=== PATIENT | male | born 1930 | race Caucasian/White ===

== ENCOUNTER 2020-11-30 11:04 | Inpatient (IN) | payer OTHER ==
[~2020-11-30] VITALS: Ht 172.7 cm; Wt 74.8 kg
[2020-11-30 11:09] VITALS: BP 117/55
[2020-11-30 12:16] LABS: ABSOLUTE NEUTROPHILS 5.5 thou/uL (1.4-8.2); BASOPHILS 0.6 % (0.0-2.0); HEMATOCRIT 44.7 % (42.0-52.0); HEMOGLOBIN 14.6 gm/dL (14.0-18.0); LYMPHOCYTES 17.6 % (24.0-44.0); MCHC 32.6 g/dL (28.0-37.0); MCV 82.7 fL (80.0-100.0); MONOCYTES 11.3 % (1.0-8.0); PLATELET COUNT 282 thou/uL (150-400); POLYS 66.5 % (36.0-66.0); RBC 5.41 mil/uL (4.50-6.00); RDW 14.7 % (10.5-14.5); WBC 8.3 thou/uL (4.0-11.0)
[2020-11-30 12:25] LABS: ANION GAP 11 mmol/L (7-16); BUN 16 mg/dL (7-18); CALCIUM 9.4 mg/dL (8.5-10.1); CHLORIDE 103 mmol/L (98-107); CO2 27 mmol/L (21-32); CREATININE 1.1 mg/dL (0.7-1.3); GLUCOSE 109 mg/dL (74-106); POTASSIUM 4.3 mmol/L (3.5-5.1); SODIUM 141 mmol/L (136-145)
--- NOTE | 2020-11-30 12:28 | NUR ---
PT BEGINNING TO BE AGRESSIVE WITH STAFF. THREATENING TO HIT THIS NURSE. STATES HES BEEN IN THE HOSPITAL FOR 2 DAYS AND WANTS TO GO HOME. PT IS NOT EASILY REDIRECTABLE.
[2020-11-30 12:35] LABS: ALBUMIN 3.4 g/dL (3.4-5.0); SGOT 12 U/L (15-37); SGPT 15 U/L (16-63); TOTAL BILIRUBIN 0.4 mg/dL (0.2-1.0); TOTAL PROTEIN 7.3 g/dL (6.4-8.2); TROPONIN-I <0.06 ng/mL (<0.06)
[2020-11-30 13:56] VITALS: BP 117/55
[2020-11-30 14:15] LABS: URINE BILIRUBIN NEGATIVE (Negative); URINE BLOOD 3+ (Negative); URINE CLARITY CLEAR; URINE COLOR YELLOW; URINE GLUCOSE-RANDOM* NEGATIVE (Negative); URINE KETONES NEGATIVE (Negative); URINE LEUKOCYTES-REFLEX TRACE (Negative); URINE NITRITE-REFLEX NEGATIVE (Negative); URINE PROTEIN (DIPSTICK) NEGATIVE (Negative); URINE SPECIFIC GRAVITY >= 1.030 (1.005-1.035)
[2020-11-30 14:24] VITALS: BP 134/68
[2020-11-30] MEDS ORDERED: PROSCAR 5MG TABL5 M1 PO (14:24)
[2020-11-30] MEDS ORDERED: SEROQUEL 25 MG25 MG PO (14:24)
[2020-11-30] MEDS ORDERED: CHILDREN'S ASPI81 M1 PO (14:24)
[2020-11-30 14:28] LABS: CASTS None Seen /LPF (None Seen); SQUAMOUS 0-3 Few /LPF (0-3)
[2020-11-30 14:29] LABS: URINE RBC >20 Many /HPF (0-2); URINE WBC-REFLEX 6-15 Few /HPF (0-5); YEAST-REFLEX Present (None Seen)
[2020-11-30 14:30] LABS: BACTERIA-REFLEX 1-9 Few /HPF (None Seen)
[2020-11-30 14:31] LABS: CRYSTALS None Seen /LPF (None Seen)
--- NOTE | 2020-11-30 15:39 | EKG ---
[address] [place] [address] ELECTROCARDIOGRAM REPORT Name: RAAD DUMONT Room #: 170-4 ADM IN M.R.#: [id number] Admission: 11/30/20 Attend Phys: Andreas Reyes MD Discharge: Date of : [birth year] Report #: [id number] [facility] ED Test Date: 2020-11-30 Test Time: 11:54:46 Pat Name: RAAD DUMONT Department: Room: 170 Gender: M [employer]: kf : [id number] Requested By: Hilario Paez Order Number: [id number] MD: Saúl Knowles Measurements Intervals [place] Rate: 93 P: 76 AK: 125 QRS: 69 QRSD: 77 T: 212 QT: 302 QTc: 376 Interpretive Statements Sinus rhythm Nonspecific T abnormalities, lateral leads No previous ECG available for comparison Electronically Signed On 11-30-2020 15:39:52 AUDIO VISUAL SECRETARY by Saúl Knowles [email or web address] <ELECTRONICALLY SIGNED> By: Saúl Knowles MD 11/30/20 1539 [id number] Saúl Knowles MD /CARLOS EDUARDO
--- NOTE | 2020-11-30 19:16 | NUR ---
Pt arrived to floor per cart at 1500 in stable condition.Admission history, assessment and care plan completed with pt assist via phone.Fall risk bracelet applied and pt transfered from 458 to [facility] for closer monitor.Report off to kathy rn.
[2020-11-30 20:00] VITALS: BP 135/73
--- NOTE | 2020-12-01 04:04 | NUR ---
Assumed pt care at 1900, awake,alert to self, very impulsive and keeps trying to get out of bed,pulling off tele electrodes several times. Pt making incomprehensible words as he moves from side to side in bed, denies pain on assessment. Medicated for insomnia with no effect,Charisma VULCAN CREWMEMBER notified on pt's status order given for Haldol IV and effective. Pt voiding per urinal per request. Won't leave gown/chux on. ST/ on telemetry. Fall precautions in place,resting quietly at this time w/o any distress noted,frequent checks on pt for safety done.
[2020-12-01 05:14] LABS: MCHC 33.1 g/dL (28.0-37.0)
[2020-12-01 05:17] LABS: HEMATOCRIT 44.1 % (42.0-52.0); HEMOGLOBIN 14.6 gm/dL (14.0-18.0); MCH 27.3 pg (26.0-34.0); MCV 82.5 fL (80.0-100.0); RBC 5.35 mil/uL (4.50-6.00); RDW 15.2 % (10.5-14.5); WBC 11.6 thou/uL (4.0-11.0)
[2020-12-01 08:00] VITALS: BP 118/69
--- NOTE | 2020-12-01 13:41 | NUR ---
FAXED CLINICAL UPDATE TO [facility] RECEIVED CONFIRMATION AND SPOKE WITH HEMAL IN ADM.
--- NOTE | 2020-12-01 14:37 | NUR ---
PT ADMITTED RELATED TO WEAKNESS, UNABLE TO TAKE CARE OF SELF. CM REVIEWED CHART AND SPOKE WITH CARE TEAM . CM ATTEMTPED PT TO PHONE NUMBER LISTED FOR SPOUSE WITH NO ANSWER. CM CALLED AND SPOKE WITH COLTEN DIRECTOR AT [facility]. IT WAS INDICATED THAT PT AND HIS STEPHANIE HAD MOVED IN THERE JUST BEFORE PENG. PT HAD RECENTLY BEEN TO [facility] SKILLED REHAB FACILITY AND HAD BEEN BACK AT THE [place] [facility] WITH FOR ABOUT A WEEK PRIOR TO COMING TO HOSPITAL. PT'S SPOUSE CALLED THE UNIT AND SHE INDICATED THAT HER CELL NUMBER IS . CM CALLED AND SPOKE WITH HER. SHE INDICATED THAT THEY BOTH HAD COVID BEFORE PENG AND THAT PT HADN'T REALLY RECOVERED. SHE AND PT HAD BEEN LIVING IN A HOUSE AT [address] [place] [address] IN [place] PRIOR TO MOVING INTO [facility]. THEY STILL OWN HOME AND SPOUSE INDICATED THAT IS IS MORE ACCESSABLE FOR PT THEN APPARTMENT. SHE INDICATED THAT PT HAD 3 HRS 4 DAYS A WEEK [facility] AT HOME AND HAD USED SPECIAL[facility]ED HH SERVICES IN THE PAST. SHE INDICATED PT IS NOW WC BOUND BUT THAT HE HAD BEEN ABLE TO DO TRANSFERES AT [facility] PRIOR TO THIS LAST SKILLED STAY. PT'S PCP IS DR. HELEN MACHADO AT [facility]. SPOUSE INDICATED THAT THEIR TWO SONS ARE INVOLVED IN THEIR CARE AND THE YOUNGEST SON LIVES IN [place]. SPOUSE INDICATED THAT THEY HAD MADE SONS DPOA'S. CM REQUESTED DOCUMENT FROM [facility] THEY ARE TO FAX IT. SPOUSE IS RECEPTIVE TO SHORT TERM SKILLED EHAB STAY AND ASKED THAT REFERRAL BE SENT TO [facility] ( THEIR YOUNGEST SON RESIDES IN [place]) FOR REVIEW FOR POSSIBLE ADMISSION. SHE EXPRESSED THAT SHE WOULD LIKE FOR HIM TO PROGRESS TO WHERE HE MIGHT BE ABLE TO RETURN TO THEIR HOME WITH INCREASED CAREGIVER SERVICES AND HH SERVICES. REFERAL TO BE SENT TO FACILITY. CM TO FOLLOW INDICATED WITH DC PLANNING.
--- NOTE | 2020-12-01 16:55 | NUR ---
FAXED REFERRAL TO [facility] RECEIVED CONFIRMATION AND LEFT MSG WITH VLADIMIR IN ADM.
[2020-12-01 17:20] VITALS: BP 102/47
[2020-12-01 19:07] VITALS: BP 96/44
--- NOTE | 2020-12-01 19:08 | NUR ---
Assumed pt care at 7am.Pt in bed sleeping on and off.Assessment completed.vss. Assisted with tray setup at all meals,fair appetite.Made call to pt's for updates but not available and unable to leave message.Later this evening,pt was agitated and restless getting out of bed without assist.Haldol iv given with relief.Pt in bed sleeping.Report off to noc rn.
--- NOTE | 2020-12-02 03:20 | NUR ---
ASSUMED CARE OF PT AT 1900HRS. PT IS ALERT BUT ONLY ORIENTED TO PERSON. FALL PRECAUTION IN PLACE. PT IS KNOWN TO BE IMPULSIVE AND AGITATED AT TIMES, HOWEVER, PT WAS CALM AND COOPERATIVE THIS SHIFT. PT DENIED PAIN NAUSEA OR SOA. ASSESSMENT CHARTED. PT IS VERY UNSTEADY ON HIS FEET AND REQURED MAX ASSIST. COVID TEST DONE FOR DC PLANNING. PT WAS ELROY TO GET COMFORTABLE AND SLEEP PART OF THE SHIFT. VSS AND NO S/S OF ACUTE DISTRESS. WILL CONTINUE TO MONITOR.
[2020-12-02 07:10] VITALS: BP 104/55
--- NOTE | 2020-12-02 09:16 | NUR ---
APPROX 0735 PATIENT BECAME IMPULSIVE AND COMBATIVE. PATIENT WANTED TO GET OUT OF BED AND WAS CONFUSED TO WHY HE WAS HERE. PATIENT WAS STATING HE WOULD PUNCH STAFF AND DID SWING ARMS. PATIENT WAS GIVEN HALDOL IV. ATTEMPTED TO GIVE SEROQUEL BUT THE PILL WAS SMACKED OUT OF MY HAND. ITS 0916 NOW AND PATIENT IS CALM AND SMILING AND TOOK HIS PILLS WHOLE.
[2020-12-02 15:35] VITALS: BP 99/53
[2020-12-02 15:57] VITALS: BP 104/55
--- NOTE | 2020-12-02 15:58 | NUR ---
CM HEARD FROM [facility] THIS DAY THAT THEY ARE ABLE TO ACCEPT PT FOR ADMISSION. CM CALLED AND NOTIFIED PT'S SPOUSE STEPHANIE AND SHE INDICATED THAT NO NOW SHE WANTED PT TO RETURN TO [facility] WITH HER AND RESUME SPECIALIZED HH SERVICES AND CAREGIVER SERVICES. CM SPOKE WITH PT THAT SHE HAD INDICATED YESTERDAY THAT SHE WASN'T ABLE TO MEET PT'S NEEDS AT THE [place] AND WANTED SHORT SKILLED STAY. NOW SAYING THAT PT DOES BETTER WITH HER AND WANTS HIM HOME. CM INDICATED THAT PT WAS BEING SOMEWHAT COMBATIVE WITH CARES WITH NURSING STAFF AND THAT CARE TEAM WERE RECEOMMENDING REHAB SERVICES. CM INDICATED THAT CM WOULD NEED TO NOTIFY STAFF THEY HAD EXPRESSED CONCERN ABOUT PT RETURNING TO THE [place] WITH HER. CM CALLED AND SPOKE WITH THEIR SON FRANSISCO WHO IS IN [place] CURRENTLY. HE INDICATED THAT THEY ARE CONTEMPLATING HAVING DOC ACTIVATE THE DPOA ON THEIR MOM AND THAT THIS IS HE MO SHE CHANGES HER MIND CONSTANTLY. FRANSISCO INDICATED PREFERENCE FOR PT AND SPOUSE TO MOVE INTO AL AT [facility] OR FOR PT TO GO SKILLED. SAUL CALLED STAFF AT [facility] AND EXPLAINED THE SITUATION. SHE WAS GOING TO SPEAK WITH SPOUSE AND AL STAFF AT AND CALL CM BACK. AWAITING RESPONSE.
--- NOTE | 2020-12-02 16:02 | NUR ---
PT ON SERVICE WITH [facility] HH PRIOR TO ADM FAXED CLINICAL UPDATE SPOKE WITH ISAAC IN INTAKE SHE RECEIVED UPDATE AND WILL RESUME CARE AT DISCHARGE.
[2020-12-02 19:30] VITALS: BP 115/60
--- NOTE | 2020-12-03 04:06 | NUR ---
ASSUMED CARE OF PT AT 1900HRE. PT IS ALERT BUT ONLY ORIENTED TO PERSON. FALL PRECAUTION IN PLACE. PT WAS CALM AND COOPERATIVE THIS SHIFT BUT IS KNOEN TO BE IMPULSIVE AND COMBATIVE. PT DENIED PAIN, NAUSEA OR SOA. ASSESSMENT CHARTED. PT WAS ABLE TO GET COMFORTABLE AND SLEEP PART OF THE SHIFT. VSS AND NO S/S OF ACUTE DISTRESS. WILL CONTINUE TO MONITOR.
--- NOTE | 2020-12-03 05:11 | NUR ---
PACEMENT COVID TEST RESULT CAME BACK POSITIVE ON 12/03/20 AT 0500HRS. CLOTH FINISHING RANGE BACK TENDER AND NUCLEAR WASTE PROCESS OPERATOR NOTIFIED. PT WAS COVID POSITIVE ON 10/12/21 AT FACILITY PER ER DOCUMENTATION.
--- NOTE | 2020-12-03 05:39 | NUR ---
PCR THRESHOLD >33. NO NEED TO MOVE PT TO COVID UNIT PER INFECTION CONTROL.
[2020-12-03 07:19] VITALS: BP 121/61
[2020-12-03] MEDS ORDERED: DEPAKOTE SPRIN125 MG PO (15:08)
[2020-12-03 15:36] VITALS: BP 104/55
--- NOTE | 2020-12-03 15:57 | NUR ---
CM FOLLOWED UP WITH COLTEN OH DIRECTOR AT [facility] THIS AM AND SHE INDICATED THAT THEY HAD ATTEMPTED TO SPEAK WITH SPOUSE ABOUT THEY GOING TO OR BUT SPOUSE WOULDN'T COMMIT. CM SPOKE WITH PORTIA MOODY AND HE INDICATED THAT HE HAD SPOKEN TO HIS BROTHER AND TO THEIR MOM AND IT WAS AGREED FOR PT TO GO TO [facility] IN [place]. CM ATTEMPTED TO CONTACT SPOUSE A FEW TIME AND SHE INDICATED THAT SHE DIDN'T WANT OT TO GO TO SKILLED REHAB THAT SHE WANTED PT TO RETURN [place] WITH HER AT WITH SPECIALIZED HH. CM NOTIFIED PHYSICIAN. PHYSICIAN INDICATED THAT PT WAS MEDICALLY STABLE TO DC TO [place] WITH HH. CM CALLED AND NOTIFIED [place] AT OF PT'S RETURN. CM NOTIFIED PT'S SON FRANSISCO. CM SENT ORDERS TO [facility]. PT INDICATED THAT HE SON WHO LIVES LOCALLY WILL BE WITH THEM THIS WEEKEND. SPOUSE INDICATED THAT SHE WOULD NEED TRANSPORT ARRANGED TO BRING PT HOME THIS EVENING. CM TO [facility]ED [facility]. CM NOTIFIED SPOUSE THAT CM WAS GOING TO [place] AND THAT [facility] STAFF WOULD LIEKLY [place]OTLINE WELL THEY DON'T FEEL PT IS SAFE TO RETURN TO THAT LEVEL OF CARE. SHE EXPRESSED UNDERSTANDING. CM FAXED ORDERS TO [facility].
[2020-12-03 16:05] VITALS: BP 124/74
--- NOTE | 2020-12-03 20:01 | NUR ---
PT A&O TO SELF, VSS, NO APPARENT PAIN. PATIENT TRAY SET UP BUT CAN FEED HIMSELF. PATIENT WAS PLEASANT AND COOPERATIVE TODAY. PATIENT DISCHARGED TO HOME INDEPENDENT LIVING FACILITY. NO SIGNS OF DISTRESS, ALL BELONGINGS SENT WITH PATIENT.
== END 2020-12-03 18:43 | disposition home health service (06) | DRG 884 ==
LOC: ER 11:04 → EROBS 14:00 → 4W 14:00
PROVIDERS: Physician Assistant; ADMIT Hospitalist; ATTEND Hospitalist
DX: F03.91 Unspecified dementia, unspecified severity, with behavioral disturbance (principal); U07.1 COVID-19; N40.0 Benign prostatic hyperplasia without lower urinary tract symptoms; Z87.891 Personal history of nicotine dependence; Z79.899 Other long term (current) drug therapy; Z91.041 Radiographic dye allergy status; Z79.82 Long term (current) use of aspirin
CPT/HCPCS: 10047